=== PATIENT | female | born 1975 | race Two or more races ===

== ENCOUNTER 2021-12-20 21:48 | Emergency (ER) | payer MEDICAID ==
[~2021-12-20] VITALS: Ht 149.9 cm; Wt 67.1 kg
[2021-12-20] MEDS ORDERED: EPINEPHrine HCL 1 MG/1 ML AMP SC ONE (22:30)
[2021-12-20] MEDS ORDERED: diphenhdrAMINE HCL 50 MG/1 ML VL IM ONE (22:45)
[2021-12-20 23:52] LABS: Albumin 3.5 g/dL (3.4-5.0); BUN/Creatinine Ratio 11.4; Calcium 8.5 mg/dL (8.5-10.1); Potassium 3.6 mmol/L (3.5-5.1)
[2021-12-20 23:55] LABS: Bilirubin, Total 0.5 mg/dL (0.2-1.0); Total Protein 6.9 g/dL (6.4-8.2)
[2021-12-21 00:02] LABS: Basophils # (auto) 0.4 10 ^3/uL (0-0.2); Basophils % (auto) 1.8 % (0.0-2.0); Eosinophils # (auto) 0.3 10 ^3/uL (0-0.8); Eosinophils % (auto) 1.4 % (0.0-7.0); Hematocrit 46.2 % (36.0-46.0); Hemoglobin 15.8 g/dL (12.2-16.2); Lymphocytes # (auto) 2.4 10 ^3/uL (0.4-5.4); Lymphocytes % (auto) 11.7 % (10.0-50.0); Mean Corpuscular Hemoglobin 29.2 pg (28.0-32.0); Mean Corpuscular Hgb Conc. 34.2 g/dL (32.0-36.0); Mean Corpuscular Volume 85.4 fL (80.0-100.0); Monocytes # (auto) 0.5 10 ^3/uL (0-1.3); Monocytes % (auto) 2.4 % (0.0-12.0); Neutrophils # (auto) 17.1 10 ^3/uL (1.6-8.6); Neutrophils % (auto) 82.7 % (37.0-80.0); Red Blood Cells 5.41 10^6/uL (4.0-5.20); Red Cell Distribution Width 12.5 % (11.8-14.3); White Blood Cell 20.7 10^3/uL (4.4-10.8)
[2021-12-21] MEDS ORDERED: DIP25C PO (00:38)
[2021-12-21] MEDS ORDERED: EPIN30IN IJ (00:38)
[2021-12-21 01:00] VITALS: BP 119/87
[2021-12-21] MEDS ORDERED: FAMO20TA10 PO (09:36)
[2021-12-21] MEDS ORDERED: PRED20TA2 PO (09:36)
== END 2021-12-21 01:06 | disposition home or self-care (01) ==
LOC: ER 21:48
DX: L50.9 Urticaria, unspecified (principal); R94.31 Abnormal electrocardiogram [ECG] [EKG]
CPT/HCPCS: 36415; 80053; 84484; 85025; 93005; 96372; 99284; J0171; J1200

== ENCOUNTER 2021-12-21 05:10 | Emergency (ER) | payer MEDICAID ==
[~2021-12-21] VITALS: Ht 149.9 cm; Wt 67.1 kg
[~2021-12-21 05:10] MED LIST: DIP25C PO; EPIN30IN IJ
[2021-12-21] MEDS ORDERED: SODIUM CHLORIDE 0.9% 1,000 ML IV ONE (05:25)
[2021-12-21] MEDS ORDERED: diphenhdrAMINE HCL 50 MG/1 ML VL IV ONE ×2 (05:30→10:00)
[2021-12-21] MEDS ORDERED: methylPREDNISolone SOD SUCC 125 MG/2 ML VL IV ONE ×2 (05:30→10:00)
[2021-12-21] MEDS ORDERED: FAMOTIDINE (10MG/ML) 2ML VL IV ONE (05:30)
[2021-12-21] MEDS ORDERED: EPINEPHrine HCL 1 MG/1 ML AMP IM ONE (06:15)
[2021-12-21 07:45] VITALS: BP 127/84
[2021-12-21] MEDS ORDERED: FAMO20TA10 PO (09:36)
[2021-12-21] MEDS ORDERED: PRED20TA2 PO (09:36)
[2021-12-21] MEDS ORDERED: PANTOPRAZOLE 40 MG/10 ML VIAL INJ IV ONE (10:00)
[2021-12-21] MEDS ORDERED: IPRATROPIUM BROM 0.5 MG/2.5ML INH SOL NEB ONE (10:00)
[2021-12-21] MEDS ORDERED: ALBUTEROL SULF 2.5 MG/0.5ML(0.5%) NEB SOLN NEB ONE (10:00)
== END 2021-12-21 12:29 | disposition home or self-care (01) ==
LOC: ER 05:10
DX: L50.9 Urticaria, unspecified (principal); X58.XXXA Exposure to other specified factors, initial encounter
CPT/HCPCS: 94640; 96361; 96372; 96374; 96375; 96376; 99284; C9113; J0171; J1200; J2930; J3490; J7030; J7644